=== PATIENT | female | born 1990 | race Caucasian/White ===

== ENCOUNTER 2020-04-23 04:18 | Inpatient (IN) | payer OTHER ==
[2020-04-23] MEDS ORDERED: TERBUTALINE 1 MG/ML VIAL SQ PRN (04:57)
[2020-04-23] MEDS ORDERED: OXYTOCIN 10 UNIT/ML 1 ML VIAL IM PRN (04:57)
[2020-04-23] MEDS ORDERED: LIDOCAINE 0.5% (PF) 5 MG/ML (50 ML SDV) SQ PRN (04:57)
[2020-04-23] MEDS ORDERED: METHYLERGONOVINE 0.2 MG/ML 1 ML AMP IM PRN (04:57)
[2020-04-23] MEDS ORDERED: CARBOPROST TROMETHAMINE 250 MCG/ML 1 ML AMP IM PRN (04:57)
[2020-04-23] MEDS ORDERED: LACTATED RINGERS 1,000 ML IV SCH (05:00)
[2020-04-23 05:29] LABS: Basophils % (A) 0 %; Eosinophils # (A) 0.2 k/uL (0-0.7); Eosinophils % (A) 1 %; HCT 37.4 % (34.0-46.0); HGB 12.5 gm/dL (11.4-16.0); Lymphocytes # (A) 1.9 k/uL (1.0-4.8); Lymphocytes % (A) 16 %; MCHC 33.5 g/dL (31.0-37.0); MCV 95.5 fL (80.0-100.0); Mean Platelet Volume 9.4; Monocytes # (A) 0.6 k/uL (0-1.0); Monocytes % (A) 5 %; Neutrophils # (A) 9.1 k/uL (1.3-7.7); Neutrophils % (A) 76 %; Platelet Count 204 k/uL (150-450); RBC 3.91 m/uL (3.80-5.40); RDW 13.7 % (11.5-15.5); WBC 12.1 k/uL (3.8-10.6)
--- NOTE | 2020-04-23 05:47 | P.HPOB ---
History of Present Illness H&P Date: 04/23/20 Chief Complaint: Contractions This is a 29-year-old female 3 para 2 with an estimated date of confinement of 05/08/2020, estimated gestational age of 37-6/7 weeks, who presents to labor and delivery with complaints of contractions that began approximately 11 PM last night. She denies any rupture of membranes. Her care has been with Dr. Dover and has been uncomplicated per patient. labs: Random glucose-78 Hemoglobin-13.7 Blood type-A+ Antibody screen-negative Hepatitis B surface antigen-negative on reactive Rubella-immune Syphilis antibody-nonreactive HIV-nonreactive Obstetrical ultrasound-normal anatomy One hour Glucola-128 GC/chlamydia/Trichomonas-negative Group B streptococcus-negative Obstetrical history: . History of 2 vaginal deliveries at term with no complications. Review of Systems Constitutional: Denies chills, Denies fever Eyes: denies blurred vision, denies pain Ears, nose, mouth and throat: Denies headache, Denies sore throat Cardiovascular: Denies chest pain, Denies shortness of breath Respiratory: Denies cough Gastrointestinal: Reports abdominal pain (Contractions approximately 5 minutes apart) Genitourinary: Reports pelvic pain, Reports Musculoskeletal: Reports low back pain Integumentary: Denies pruritus, Denies rash Neurological: Denies numbness, Denies weakness Psychiatric: Denies anxiety, Denies depression Past Medical History Past Medical History: No Reported History History of Any Multi-Drug Resistant Organisms: None Reported Past Surgical History: No Surgical Hx Reported Past Anesthesia/Blood Transfusion Reactions: No Reported Reaction Past Psychological History: No Psychological Hx Reported Smoking Status: Current every day smoker Past Alcohol Use History: Occasional Past Drug Use History: None Reported - Past Family History Mother History Unknown: Yes Medications and Allergies Home Medications Medication Instructions Recorded Confirmed Type No Known Home Medications 04/23/20 04/23/20 History Allergies Allergy/AdvReac Type Severity Reaction Status Date / Time No Known Allergies Allergy Verified 04/23/20 04:31 Exam Osteopathic Statement: *. No significant issues noted on an osteopathic structural exam other than those noted in the History and Physical/Consult. Vital Signs Temp Pulse Resp BP Pulse Ox 04/23/20 04:35 97.5 F L 80 18 121/79 98 Intake and Output 04/22/20 04/22/20 04/23/20 14:59 22:59 06:59 Other: Weight 75.296 kg HEENT: Within normal limits Heart: Regular rate and rhythm Lungs: Clear to auscultation bilaterally Abdomen: Cervix: 6-7 cm/90%/-2 station with bulging bag. Artificial rupture of membranes is carried out with minimal fluid noted. It appears to be clear. heart tones: Category 1 Contractions: Approximately every 3-5 minutes. Extremities: Negative Homans Results Result Diagrams: 04/23/20 05:17 Abnormal Lab Results - Last 24 Hours (Table) 04/23/20 Range/Units 05:17 WBC 12.1 H (3.8-10.6) k/uL Neutrophils # 9.1 H (1.3-7.7) k/uL Assessment and Plan (1) 37 weeks gestation of Current Visit: Yes Status: Acute Code(s): Z3A.37 - 37 WEEKS GESTATION OF SNOMED Code(s): 22184348 Plan: Admission for active labor. Expectant management. Patient declines a need for any pain medication at this time.
--- NOTE | 2020-04-23 05:47 | P.MSEPDOC ---
Presenting Problems - Arrival Data Date of Arrival on Unit: 04/23/20 Time of Arrival on Unit: 04:19 Mode of Transport: Ambulatory - Complaint OB-Reason for Admission/Chief Complaint: Possible Onset of Labor Comment: ctx since 2300 last night, 6cm Medical History - Information : 3 Para: 2 Term: 2 : 0 Abortions: Spontaneous or Elective: 0 Number of Living Children: 2 - Gestational Age Gestational Age by ONEIL (wks/days): 37 Weeks and 6 Days - History Complications: Smoker Review of Systems - Review of Systems Constitutional: No problems Breast: No problems ENT: No problems Cardiovascular: No problems Respiratory: No problems Gastrointestinal: No problems Genitourinary: No problems Musculoskeletal: No problems Neurological: No problems Skin: No problems Vital Signs - Temperature Temperature: 97.5 F Temperature Source: Temporal Artery Scan - Pulse Brachial Pulse Rate: 80 Pulse Assessment Method: Automatic Cuff - Respirations Respiratory Rate: 18 Oxygen Delivery Method: Room Air O2 Sat by Pulse Oximetry: 98 - Blood Pressure Right Arm Blood Pressure: 121/79 Blood Pressure Mean: 93 Blood Pressure Source: Automatic Cuff Medical Screen Scoring (Pre) - Cervical Exam Dilation: 4-7 cm = 2 Effacement: More than 50% = 2 Membranes: Intact - Uterine Contractions Frequency: > or = 36 weeks =2 Duration: > 40 seconds = 2 Intensity: Contraction palpated strong = 1 - Maternal Vital Signs Maternal Temperature: N/A Maternal Blood Pressure: N/A Signs of Preeclampsia: N/A Maternal Respirations: N/A - Maternal Trauma Maternal Trauma: N/A - Assessment - Baby A Baseline FHR: 120 Heart Rate - NICHD Category: Category I (Normal) = 0 NST: Reactive Position: N/A Station: N/A - Total Score - Baby A Total Score - Baby A: 9 - Total Score - Baby B Total Score - Baby B: 9 - Total Score - Baby C Total Score - Baby C: 9 - Level of Risk - Baby A Level of Risk - Baby A: Medium (6-9) - Level of Risk - Baby B Level of Risk - Baby B: Medium (6-9) - Level of Risk - Baby C Level of Risk - Baby C: Medium (6-9) Physician Notification (Pre) - Physician Notified Physician Notified Date: 04/23/20 Physician Notified Time: 04:44 New Order Received: Yes (admit for labor, coming in) - Notification Comment Comment: to [address] Disposition - Disposition OB Disposition: Admit, LDRP Suite I agree with the RN Medical Screening Exam: Yes Risk & Benefit of care provided described in d/c instruction: Yes Diagnosis: ENCOUNTER FOR FULL-TERM UNCOMPLICATED DELIVERY
[2020-04-23] MEDS ORDERED: ZOLPIDEM 5 MG TAB PO PRN (09:04)
[2020-04-23] MEDS ORDERED: BENZOCAINE/MENTHOL SPRAY 1 GM/SPRAY AEROSOL TOPICAL PRN (09:04)
[2020-04-23] MEDS ORDERED: HYDROCORTISONE 2.5% RECTAL CREAM 30 GM TUBE RECTAL PRN (09:04)
[2020-04-23] MEDS ORDERED: diphenhydrAMINE 50 MG CAP PO PRN (09:04)
[2020-04-23] MEDS ORDERED: SIMETHICONE 80 MG CHEWABLE PO PRN (09:04)
[2020-04-23] MEDS ORDERED: diphenhydrAMINE 25 MG CAP PO PRN (09:04)
[2020-04-23] MEDS ORDERED: diphenhydrAMINE 50 MG/ML 1 ML VIAL IVP PRN ×2 (09:04)
[2020-04-23] MEDS ORDERED: OXYTOCIN 20 UNITS/1000 ML NS 1,000 ML IV SCH (09:04)
[2020-04-23] MEDS ORDERED: ACETAMINOPHEN TAB 325 MG TAB PO PRN (09:04)
[2020-04-23] MEDS ORDERED: LANOLIN CREAM 5 GM TUBE TOPICAL PRN (09:04)
[2020-04-23] MEDS: IBUPROFEN 600 MG TAB PO PRN ×2 (09:14→17:19)
[2020-04-23] MEDS: SENNOSIDES-DOCUSATE SODIUM 1 EACH TAB PO SCH ×2 (09:19→21:37)
--- NOTE | 2020-04-23 12:36 | P.PROBDLV ---
Vaginal Delivery Note - . Vaginal Delivery Note: Normal spontaneous vaginal delivery viable female infant Apgars 9 and 9 delivery time is 0842 hours. Please see dictated H&P for intimate details of this patient's admission. Brief summary this is a pleasant 29-year-old 3 para 2 female 37-6/7 weeks gestation admitted to labor and delivery with complaints of contractions found to be 6-7 cm dilated in active labor. Patient is artificial rupture membranes for clear fluid. She does not request anything for pain control. Patient's labor progresses quickly and she gets to complete. She pushes the head to the perineum and the posterior perineum is supported. We have controlled delivery of infant's head over the intact perineum. Mouth and nares are bulb suctioned. There is no evidence of nuchal cord. With gentle downward traction we then have deliver the anterior posterior shoulder and rest this infant's body. This is a vigorous viable female infant Apgars are 9 and 9 delivery time is 0540 hours. After delivery of the infant the cord was allowed to quit pulsating it is then doubly clamped and cut. It appears to be trivascular. Placenta is then spontaneously delivered intact. Estimated blood loss is 100 mL. There are no lacerations and no repairs required. Infant and mother stable delivery room.
[2020-04-24 01:08] VITALS: RESP 16
[2020-04-24] MEDS: IBUPROFEN 600 MG TAB PO PRN (04:17)
[2020-04-24 05:54] LABS: Basophils % (A) 0 %; Eosinophils # (A) 0.1 k/uL (0-0.7); Eosinophils % (A) 1 %; HCT 33.5 % (34.0-46.0); Lymphocytes # (A) 2.3 k/uL (1.0-4.8); Lymphocytes % (A) 20 %; MCH 31.6 pg (25.0-35.0); MCHC 32.8 g/dL (31.0-37.0); MCV 96.4 fL (80.0-100.0); Mean Platelet Volume 9.9; Monocytes # (A) 0.7 k/uL (0-1.0); Monocytes % (A) 6 %; Neutrophils % (A) 70 %; Platelet Count 164 k/uL (150-450); RBC 3.47 m/uL (3.80-5.40); RDW 13.8 % (11.5-15.5); WBC 11.4 k/uL (3.8-10.6)
--- NOTE | 2020-04-24 09:17 | P.DS ---
Providers Date of admission: 04/23/20 04:48 Expected date of discharge: 04/24/20 Attending physician: Shan Dover Primary care physician: Stated None - Discharge Diagnosis(es) (1) Normal vaginal delivery Current Visit: Yes Status: Acute Hospital Course: Patient presented in active labor. She underwent normal vaginal delivery. course was uncomplicated. Denies nausea, vomiting, chest pain, shortness of breath or calf pain. She'll be discharged home day #1 in stable condition to follow-up with Dr. Dover in 6 weeks. Plan - Discharge Summary New Discharge Prescriptions: New Ibuprofen [Motrin] 600 mg PO Q6HR PRN #40 tab PRN Reason: Mild Pain Or Fever >= 100.5 Discharge Medication List Ibuprofen [Motrin] 600 mg PO Q6HR PRN #40 tab 04/23/20 [Rx] Follow up Appointment(s)/Referral(s): Shan Dover MD [STAFF PHYSICIAN] - 6 Weeks Patient Instructions/Handouts: Vaginal Delivery (DC) Activity/Diet/Wound Care/Special Instructions: No intercourse or anything per vagina for 6 weeks. Please call if any fever, chills, excessive vaginal bleeding, and/or abdominal pain. Discharge Disposition: HOME SELF-CARE
[2020-04-24 09:26] VITALS: BP 119/68; PULSE 80; TEMP 97.8
[2020-04-24] MEDS: SENNOSIDES-DOCUSATE SODIUM 1 EACH TAB PO SCH (09:29)
== END 2020-04-24 12:18 | disposition home or self-care (01) | DRG 807 ==
LOC: FBPOP 04:18 → 4FBP 04:48
PROVIDERS: ADMIT Obstetrics & Gynecology; ATTEND Obstetrics & Gynecology
PROC: 10E0XZZ Delivery of Products of Conception, External Approach (ICD-10-PCS; principal; 2020-04-23)
DX: O99.334 Smoking (tobacco) complicating childbirth (principal); Z37.0 Single live birth; F17.200 Nicotine dependence, unspecified, uncomplicated; Z3A.37 37 weeks gestation of pregnancy
CPT/HCPCS: 59025; 85025; 86850; 86900; 86901; 99213

== ENCOUNTER → 2021-02-25 | Outpatient (CLI) | payer OTHER ==
--- NOTE | 2021-02-25 19:00 | ECHOF ---
Referral Reason:B33.22 Viral myocarditis MEASUREMENTS -------- HEIGHT: 160.0 cm WEIGHT: 74.8 kg BP: RVIDd: 2.2 cm (< 3.3) IVSd: 0.8 cm (0.6 - 1.1) LVIDd: 4.3 cm (3.9 - 5.3) LVPWd: 0.9 cm (0.6 - 1.1) IVSs: 1.0 cm LVIDs: 3.2 cm LVPWs: 1.1 cm LA Diam: 2.8 cm (2.7 - 3.8) LAESV Index (A-L): 22.27 ml/m Ao Diam: 2.7 cm (2.0 - 3.7) AV Cusp: 1.9 cm (1.5 - 2.6) LA Diam: 2.9 cm (2.7 - 3.8) MV EXCURSION: 18.373 mm (> 18.000) MV EF SLOPE: 148 mm/s (70 - 150) EPSS: 0.1 cm MV E Tyler: 0.53 m/s MV DecT: 186 ms MV A Tyler: 0.63 m/s MV E/A Ratio: 0.85 RAP: 5.00 mmHg RVSP: 22.46 mmHg FINDINGS -------- Sinus rhythm. LV size, wall thickness and systolic function are normal, with an EF greater than 55%. The left teddy tricular size is normal. The right ventricle is mildly enlarged. The left atrial size is normal. The right atrial size is normal. Probably trileaflet AV. Mild mitral regurgitation is present. Mild tricuspid regurgitation present. Right ventricular systolic pressure is normal at < 35 mmHg. There is no pulmonic regurgitation present. There is no pericardial effusion. CONCLUSIONS -------- 1. LV size, wall thickness and systolic function are normal, with an EF greater than 55%. 2. The left ventricular size is normal. 3. The right ventricle is mildly enlarged. 4. The left atrial size is normal. 5. The right atrial size is normal. 6. Probably trileaflet AV. 7. Mild mitral regurgitation is present. 8. Mild tricuspid regurgitation present. 9. There is no pericardial effusion. QUALITY ASSURANCE COACH: Denisa Curran RDCS
== END | disposition home or self-care (01) ==
LOC: RADECHMAIN 15:38
PROVIDERS: ATTEND Family Medicine
DX: I08.1 Rheumatic disorders of both mitral and tricuspid valves (principal)
CPT/HCPCS: 93306